=== PATIENT | female | born 1985 | race Two or more races ===

== ENCOUNTER 2016-07-23 16:33 | Emergency (ER) | payer OTHER ==
[~2016-07-23] VITALS: Ht 149.9 cm; Wt 65.8 kg
[~2016-07-23 16:33] MED LIST: ACETAMINOPHEN-1 EAC1 ORAL; AUGMENTIN 875-1 EAC1 ORAL; CHERATUSSIN AC118 ML PO; FLONASE1 SPRAYS NASAL; IBUPROFEN800 MG ORAL; NKM; NORCO 5-325 TA1 EACH ORAL; PROMETHAZINE HC25 M1 ORAL
[2016-07-23] MEDS ORDERED: FERROUS SULFAT325 MG ORAL (16:47)
--- NOTE | 2016-07-23 17:05 | Emergency Room Report ---
History of Present Illness General Chief Complaint: Upper Respiratory Illness Source: Patient Present Illness HPI 31-year-old female presents to emergency Department complaining of persistent dry cough times one week with one day of increased phlegm. Patient denies fevers or chills patient states she has a history of asthma and does not have an inhaler. Patient also states that she has tried taking her children's promethazine however It provided little relief. Patient denies recent travel or ill contacts other than her children. Patient denies neck pain or stiffness. Denies CP, Palpitations, LOC, AMS, dizziness, Changes in Vision, Sensation, paresthesias, or a sudden severe headache. Allergies: Coded Allergies: No Known Allergies (Unverified , 09/21/13) Patient History Past Medical History: see triage record Last Menstrual Period: 07/03/2016 Now: No : 4 Para: 3 Immunizations: UTD Reviewed Nursing Documentation: PMH: Agreed, PSxH: Agreed Nursing Documentation-PMH Hx Cardiac Problems: Yes Hx Asthma: Yes Review of Systems All Other Systems: negative except mentioned in HPI Physical Exam Vital Signs Date Time Temp Pulse Resp B/P Pulse Ox O2 Delivery O2 Flow Rate FiO2 07/23/16 16:42 98.6 76 16 105/62 99 Room Air Sp02 EP Interpretation: reviewed, normal General Appearance: no apparent distress, alert, GCS 15, non-toxic Head: normocephalic, atraumatic Eyes: bilateral eye PERRL, bilateral eye normal inspection ENT: hearing grossly normal, normal pharynx, no angioedema, normal voice Neck: full range of motion, no meningismus, no bony tend, supple/symm/no masses Respiratory: chest non-tender, lungs clear, normal breath sounds, no respiratory distress, speaking full sentences, wheezing - scant bilaterally wheezes noted Cardiovascular #1: regular rate, rhythm, no edema Gastrointestinal: normal bowel sounds, non tender, soft, no guarding, no rebound Rectal: deferred Genitourinary: normal inspection, no CVA tenderness Musculoskeletal: back normal, gait/station normal, normal range of motion, non- tender, no calf tenderness Neurologic: alert, oriented x3, responsive, motor strength/tone normal, sensory intact, speech normal Psychiatric: judgement/insight normal, memory normal, mood/affect normal, no suicidal/homicidal ideation Skin: normal color, no rash, warm/dry, well hydrated Lymphatic: no adenopathy Medical Decision Making PA Attestation Dr. Rice is my supervising Physician whom patient management has been discussed with. Diagnostic Impression: Primary Impression: Bronchitis with asthma, acute ER Course 31-year-old female presents to emergency Department complaining of persistent dry cough times one week with one day of increased phlegm. Patient denies fevers or chills patient states she has a history of asthma and does not have an inhaler. Patient also states that she has tried taking her children's promethazine however It provided little relief. Patient denies recent travel or ill contacts other than her children. Patient denies neck pain or stiffness. Ddx considered but are not limited to URI, pneumonia, PE, strep pharyngitis, meningitis. Vital signs: Pt.is afebrile VS are WNL H&PE are most consistent with bronchitis ORDERS: none required at this time, the diagnosis is clinical ED INTERVENTIONS: None required at this time. DISCHARGE: At this time pt. is stable for d/c to home. Will provide printed patient care instructions, and any necessary prescriptions. Care plan and follow up instructions have been discussed with the patient prior to discharge. Last Vital Signs Date Time Temp Pulse Resp B/P Pulse Ox O2 Delivery O2 Flow Rate FiO2 07/23/16 16:49 76 16 Room Air 07/23/16 16:42 98.6 105/62 99 Disposition: HOME, SELF-CARE Condition: Stable Scripts Guaifenesin (Guaifenesin) 1,200 Mg Tab.er.12h 1200 MG PO BID for 10 Days, #20 TAB Prov: Jacqui Herrera 07/23/16 Albuterol Sulfate* (ALBUTEROL SULFATE MDI*) 8.5 Gm Hfa.aer.ad 2 PUFF INH Q4H, #1 INH 0 Refills Prov: Jacqui Herrera.ARubina 07/23/16 Codeine/Promethazine Hcl* (PROMETHAZINE-CODEINE SYRUP*) 118 Ml Syrup 5 ML ORAL Q6H Y for For Cough, #118 ML 0 Refills Prov: Jacqui Herrera.ARubina 07/23/16 Patient Instructions: Acute Bronchitis, [id number] Additional Instructions: Take medications as directed. Follow up with PCP in 3-5 days Return sooner to ED if new symptoms occur, or current symptoms become worse. Do not drink alcohol, drive, or operate heavy machinery while taking Cough Syrup as this may cause drowsiness. - Please note that this Emergency Department Report was dictated using Product Worldb[employer] operator technology software, occasionally this can lead to erroneous entry secondary to interpretation by the dictation equipment. Jacqui Herrera Jul 23, 2016 17:05
[2016-07-23] MEDS ORDERED: PROMETHAZINE-C118 M1 ORAL (17:06)
[2016-07-23] MEDS ORDERED: ALBUTEROL SULF8.5 GM INH (17:06)
[2016-07-23] MEDS ORDERED: GUAIFENESIN1200 MG PO (17:06)
[2016-07-23 17:20] VITALS: BP 105/72
== END 2016-07-23 17:50 | disposition home or self-care (01) ==
LOC: EMR 17:35
DX: J20.9 Acute bronchitis, unspecified (principal); J45.909 Unspecified asthma, uncomplicated
CPT/HCPCS: 99284

== ENCOUNTER 2016-11-03 19:24 | Emergency (ER) | payer OTHER ==
[~2016-11-03] VITALS: Ht 149.9 cm; Wt 68.0 kg
[~2016-11-03 19:24] MED LIST changes: +ALBUTEROL SULF8.5 GM INH; +FERROUS SULFAT325 MG ORAL; +GUAIFENESIN1200 MG PO; +PROMETHAZINE-C118 M1 ORAL
[2016-11-03] MEDS ORDERED: IBUPROFEN200 MG ORAL (19:30)
[2016-11-03 19:33] VITALS: BP 106/66
[2016-11-03] MEDS ORDERED: IBUPROFEN600 MG ORAL (20:36)
[2016-11-03] MEDS ORDERED: PROMETHAZINE-C118 M1 ORAL (20:36)
[2016-11-03] MEDS ORDERED: PROAIR HFA8.5 GM INH (20:36)
[2016-11-03] MEDS ORDERED: ZITHROMAX250 MG ORAL (20:36)
[2016-11-03 20:41] VITALS: BP 106/66
--- NOTE | 2016-11-03 21:08 | Emergency Room Report ---
History of Present Illness General Chief Complaint: Flu Like Symptoms Present Illness HPI The patient is a 31-year-old female presenting for fever, cough, and myalgias for the past 5 days. She denies any sick contacts or recent travel. She has tried Motrin which does help for the pain and fever. Patient describes an 8/10 dull ache to her chest with coughing and does not radiate. She describes a yellow sputum. She denies any other symptoms including N, V, neck pain/stiffness, SOB, rash Allergies: Coded Allergies: No Known Allergies (Unverified , 11/03/16) Patient History Past Medical History: see triage record Pertinent Family History: none Last Menstrual Period: now Now: No Reviewed Nursing Documentation: PMH: Agreed, PSxH: Agreed Nursing Documentation-PMH Hx Cardiac Problems: Yes Hx Asthma: Yes Review of Systems All Other Systems: negative except mentioned in HPI Physical Exam Vital Signs Date Time Temp Pulse Resp B/P Pulse Ox O2 Delivery O2 Flow Rate FiO2 11/03/16 19:25 100.8 109 16 106/66 100 Room Air Sp02 EP Interpretation: reviewed, normal General Appearance: no apparent distress, alert, GCS 15, non-toxic Head: normocephalic, atraumatic Eyes: bilateral eye PERRL, bilateral eye normal inspection ENT: hearing grossly normal, normal pharynx, no angioedema, normal voice, TMs + canals normal, uvula midline Neck: full range of motion, supple/symm/no masses Respiratory: normal inspection, chest non-tender, no accessory muscle use, wheezing - bilat diffuse Gastrointestinal: normal bowel sounds, non tender, soft, non-distended, no guarding, no rebound Musculoskeletal: back normal, gait/station normal, normal range of motion, non- tender Neurologic: alert, oriented x3, responsive, motor strength/tone normal, sensory intact, speech normal Psychiatric: judgement/insight normal, memory normal, mood/affect normal, no suicidal/homicidal ideation Skin: normal color, no rash, warm/dry, well hydrated Lymphatic: no adenopathy Medical Decision Making PA Attestation Dr. Garcia is my supervising physician. Patient management was discussed with my supervising physician Diagnostic Impression: Primary Impression: Bronchitis ER Course The patient is a 31-year-old female presenting for fever, cough, and myalgias for the past 5 days Differential diagnosis include but not limited to pharyngitis, sinusitis, AOM, bronchitis, PNA PE: febrile. NAD HEENT unremarkable Lungs: diffuse wheezing CXR unremarkable The patient is discharged home with a prescription for cough medication, albuterol, and Motrin. ER precautions given Chest X-Ray Diagnostic Results Chest X-Ray Ordered: Yes # of Views/Limited/Complete: 1 View Interpretation: no consolidation, no effusion, no pneumothorax, no acute cardiopulmonary disease Indication: Other - cough Impression: No acute disease Date Electronically Signed: Nov 03, 2016 Time Electronically Signed: 21:07 PA Scribe Text I am acting as scribe for my supervising physician. My supervising physician's interpretation of the chest xrays are there is no consolidation, no effusion, no acute cardiopulmonary disease, no pneumothorax Last Vital Signs Date Time Temp Pulse Resp B/P Pulse Ox O2 Delivery O2 Flow Rate FiO2 11/03/16 20:41 100.8 16 106/66 100 Room Air 11/03/16 19:33 109 Status: improved Disposition: HOME, SELF-CARE Condition: Improved Scripts Codeine/Promethazine Hcl* (PROMETHAZINE-CODEINE SYRUP*) 118 Ml Syrup 5 ML ORAL Q6H Y for For Cough, #118 ML 0 Refills Prov: CARRIEZIANMILANA P.A. 11/03/16 Albuterol Sulfate* (PROAIR HFA*) 8.5 Gm Hfa.aer.ad 2 PUFFS INH Q6H, #8.5 GM 0 Refills Prov: TERZIAN,MILANA P.A. 11/03/16 Ibuprofen* (MOTRIN*) 600 Mg Tablet 600 MG ORAL Q8H Y for For Pain, #30 TAB 0 Refills Prov: TERZIAN,MILANA P.A. 11/03/16 Patient Instructions: Acute Bronchitis Additional Instructions: I discussed my findings with the patient. All questions and concerns have been answered. Treatment and medication compliance have been addressed. I advised the patient that they need to follow up with PMD in 3-5 days. Return to ED if pain remains or worsens, cough worsens or remains, you notice blood in your sputum, you notice wheezing, you experience a fever, or if needed for any reason. Patient verbalized understanding of discharge instructions. MILANA FERMIN Nov 03, 2016 21:08
--- NOTE | 2016-11-04 12:04 | Diagnostic Imaging Report ---
Indication: COUGH Technique: Single portable AP view of the chest. Findings: Comparison: None. The bones and extra pulmonary soft tissues, cardiomediastinal silhouette, pulmonary vasculature and parenchyma, and pleural surfaces are unremarkable. IMPRESSION: Negative portable AP chest.
== END 2016-11-03 20:41 | disposition home or self-care (01) ==
LOC: EMR 19:59
DX: J45.909 Unspecified asthma, uncomplicated (principal)
CPT/HCPCS: 71010; 99284

== ENCOUNTER 2017-03-19 13:29 | Emergency (ER) | payer OTHER ==
[~2017-03-19] VITALS: Ht 149.9 cm; Wt 51.7 kg
[~2017-03-19 13:29] MED LIST changes: +IBUPROFEN200 MG ORAL; +IBUPROFEN600 MG ORAL; +PROAIR HFA8.5 GM INH; +ZITHROMAX250 MG ORAL
--- NOTE | 2017-03-19 14:00 | Emergency Room Report ---
History of Present Illness General Chief Complaint: Earache Source: Patient Present Illness HPI 31-year-old female presents to the emergency department complaining of 8/10 in severity right ear ache with muffled hearing in the right ear in addition to a sore throat with nasal congestion. Denies fevers or chills. Denies neck pain or stiffness. Reports pain is exacerbated upon swallowing. She denies headache , loss of hearing, tinnitus or q-tip use. Denies CP, Palpitations, LOC, AMS, dizziness, Changes in Vision, Sensation, paresthesias, or a sudden severe headache. pt. has hx of cerumen impactions in the right ear. Allergies: Coded Allergies: No Known Allergies (Unverified , 11/03/16) Patient History Past Medical History: see triage record Past Surgical History: none Pertinent Family History: none Last Menstrual Period: 03/13/17 Now: No Immunizations: UTD Reviewed Nursing Documentation: PMH: Agreed, PSxH: Agreed Nursing Documentation-PMH Past Medical History: No History, Except For Hx Cardiac Problems: Yes Hx Asthma: Yes Review of Systems All Other Systems: negative except mentioned in HPI Physical Exam Vital Signs Date Time Temp Pulse Resp B/P (MAP) Pulse Ox O2 Delivery O2 Flow Rate FiO2 03/19/17 13:31 98.1 87 18 101/67 97 Room Air Sp02 EP Interpretation: reviewed, normal General Appearance: no apparent distress, alert, GCS 15, non-toxic Head: normocephalic, atraumatic Eyes: bilateral eye normal inspection, bilateral eye PERRL ENT: hearing grossly normal, normal pharynx, normal voice, uvula midline, moist mucus membranes, nasal congestion, pharyngeal erythema, other - excessive cerumen in the right ear canal. There is no evidence of TM infection or rupture , canal is WNL. Neck: full range of motion, no meningismus, supple/symm/no masses Respiratory: chest non-tender, lungs clear, normal breath sounds, speaking full sentences Cardiovascular #1: regular rate, rhythm Musculoskeletal: back normal, gait/station normal, normal range of motion Neurologic: alert, oriented x3, responsive, motor strength/tone normal, sensory intact, speech normal Skin: normal color, no rash, warm/dry, well hydrated Lymphatic: no adenopathy Medical Decision Making PA Attestation Dr. Hyde is my supervising Physician whom patient management has been discussed with. Diagnostic Impression: Primary Impression: Excessive cerumen in right ear canal Additional Impressions: Post-nasal drainage Pharyngitis Qualified Codes: J02.9 - Acute pharyngitis, unspecified ER Course 31-year-old female presents to the emergency department complaining of 8/10 in severity right ear ache with muffled hearing in the right ear in addition to a sore throat with nasal congestion. Denies fevers or chills. Denies neck pain or stiffness. Reports pain is exacerbated upon swallowing. She denies headache , loss of hearing, tinnitus or q-tip use. Denies CP, Palpitations, LOC, AMS, dizziness, Changes in Vision, Sensation, paresthesias, or a sudden severe headache. pt. has hx of cerumen impactions in the right ear. Ddx considered but are not limited to OM, OE, mastoiditis, TM perforation, FB, PND, pharyngitis jsut to name a few Vital signs: are WNL, pt. is afebrile H&PE are most consistent with excessive cerumen of the right ear canal, pharyngeal erythema with evidence of PND, no exudates or tonsillar swelling , bacterial infection is not suspected at this time. ORDERS: none required at this time, the diagnosis is clinical -OTOSCOPY: excessive cerumen in the right ear canal. There is no evidence of TM infection or rupture, canal is WNL. ED INTERVENTIONS: None required at this time. DISCHARGE: At this time pt. is stable for d/c to home. With rx for Debrox. Will provide printed patient care instructions, and any necessary prescriptions. Care plan and follow up instructions have been discussed with the patient prior to discharge. Last Vital Signs Date Time Temp Pulse Resp B/P (MAP) Pulse Ox O2 Delivery O2 Flow Rate FiO2 03/19/17 13:31 98.1 87 18 101/67 97 Room Air Disposition: HOME, SELF-CARE Condition: Stable Scripts Acetaminophen* (TYLENOL EXTRA STRENGTH*) 500 Mg Tablet 500 MG ORAL Q6H, #20 TAB 0 Refills Prov: Jacqui Herrera P.A. 03/19/17 Cetirizine Hcl* (ZYRTEC*) 10 Mg Tablet 10 MG ORAL DAILY, #15 TAB 0 Refills Prov: Jacqui Herrera P.A. 03/19/17 Lidocaine HCl 2% Viscous (Lidocaine HCl 2% Viscous) 100 Ml Solution 10 ML ORAL QID for 3 Days, #100 ML Prov: Jacqui Herrera 03/19/17 Carbamide Peroxide (DEBROX) 15 Ml Drops 10 DROP RIGHT EAR TWICE A DAY for 4 Days, #15 ML 0 Refills Prov: Jacqui Herrera 03/19/17 Patient Instructions: Cerumen Impaction, Earache Additional Instructions: Take medications as directed. Follow up with a Primary Care Provider in 3-5 days, even if your symptoms have resolved. --Please review list of primary care clinics, if you do not already have a primary care provider Return sooner to ED if new symptoms occur, or current symptoms become worse. - Please note that this Emergency Department Report was dictated using [employer] kura kaupapa maori technology software, occasionally this can lead to erroneous entry secondary to interpretation by the dictation equipment. Jacqui Herrera Mar 19, 2017 14:00
[2017-03-19] MEDS ORDERED: ZYRTEC10 MG ORAL (14:01)
[2017-03-19] MEDS ORDERED: DEBROX15 M1 RIGHT EAR (14:01)
[2017-03-19] MEDS ORDERED: LIDOCAINE VISC100 ML ORAL (14:01)
[2017-03-19] MEDS ORDERED: TYLENOL EXTRA500 MG ORAL (14:05)
[2017-03-19 14:11] VITALS: BP 101/67
[2017-03-19 14:15] VITALS: BP 101/67
== END 2017-03-19 14:20 | disposition home or self-care (01) ==
LOC: EMR 13:59
DX: H61.21 Impacted cerumen, right ear (principal); R09.82 Postnasal drip; J02.9 Acute pharyngitis, unspecified; J45.909 Unspecified asthma, uncomplicated
CPT/HCPCS: 99284

== ENCOUNTER 2017-09-29 19:32 | Emergency (ER) | payer OTHER ==
[~2017-09-29] VITALS: Ht 149.9 cm; Wt 65.8 kg
[~2017-09-29 19:32] MED LIST changes: +DEBROX15 M1 RIGHT EAR; +LIDOCAINE VISC100 ML ORAL; +TYLENOL EXTRA500 MG ORAL; +ZYRTEC10 MG ORAL
[2017-09-29 20:26] LABS: APPEARANCE,URINE CLEAR; BILIRUBIN, URINE NEGATIVE (NEGATIVE); GLUCOSE, URINE (UA) NEGATIVE (NEGATIVE); KETONES,URINE NEGATIVE (NEGATIVE); LEUKOCYTE ESTERASE ,URINE NEGATIVE (NEGATIVE); NITRITE,URINE NEGATIVE (NEGATIVE); PH,URINE 7 (4.5-8.0); PROTEIN,URINE NEGATIVE (NEGATIVE); UROBILINOGEN,URINE 1 MG/DL (0.0-1.0)
[2017-09-29 20:26] LABS: BASOPHILS % (AUTO) 0.6 % (0.0-2.0); EOSINOPHILS % (AUTO) 0.7 % (0.0-3.0); HEMOGLOBIN 11.3 G/DL (12.0-16.0); LYMPHOCYTES % (AUTO) 13.1 % (20.0-45.0); MEAN CORPUSCULAR VOLUME 75 FL (80-99); MONOCYTES % (AUTO) 4.8 % (1.0-10.0); NEUTROPHILS % (AUTO) 80.8 % (45.0-75.0); PLATELET COUNT 219 K/UL (150-450); RED CELL DISTRIBUTION WIDTH 15.6 % (11.6-14.8); WHITE BLOOD COUNT 8.3 K/UL (4.8-10.8)
[2017-09-29 20:32] LABS: COLOR,URINE YELLOW
[2017-09-29 20:34] LABS: ANION GAP 10 mmol/L (5-15); BLOOD UREA NITROGEN 12 mg/dL (7-18); CALCIUM 8.5 MG/DL (8.5-10.1); CARBON DIOXIDE 22 MMOL/L (21-32); CHLORIDE 104 MMOL/L (98-107); CREATININE 0.8 MG/DL (0.55-1.30); POTASSIUM 3.9 MMOL/L (3.5-5.1); SODIUM 136 MMOL/L (136-145)
[2017-09-29 20:39] LABS: ALANINE AMINOTRANSFERASE 21 U/L (12-78); ALBUMIN 3.7 G/DL (3.4-5.0); ALBUMIN/GLOBULIN RATIO 0.9 (1.0-2.7); ALKALINE PHOSPHATASE 67 U/L (46-116); ASPARTATE AMINO TRANSFERASE 17 U/L (15-37); BILIRUBIN,TOTAL 0.8 MG/DL (0.2-1.0)
[2017-09-29] MEDS ORDERED: PEPCID AC20 M2 PO (21:03)
--- NOTE | 2017-09-29 21:09 | Emergency Room Report ---
History of Present Illness General Chief Complaint: Abdominal Pain Source: Patient Present Illness HPI 32-year-old female with no sig pmhx p/w epigastric abd pain nausea vomiting diarrhea for 1 day. Patient states pain started gradually , localized to epigastric area, non radiating, burning in nature, intermittent. No relieving or exacerbating factors. States that she traveled to [place] recently, and they have had bad [place] food Pt reports n/v, more than 5 episodes of nbnb vomiting, more than 5 episodes of watery non bloody diarrhea. Denies black or bloody stools. No recent antibiotic use Denies fever, chills. No hx of abdominal surgeries. No hx of endoscopies/colonoscopies. Allergies: Coded Allergies: No Known Allergies (Unverified , 11/03/16) Patient History Past Medical History: see triage record Past Surgical History: none Pertinent Family History: none Last Menstrual Period: a month ago Reviewed Nursing Documentation: PMH: Agreed; PSxH: Agreed Nursing Documentation-PMH Hx Cardiac Problems: Yes Hx Asthma: Yes Review of Systems All Other Systems: negative except mentioned in HPI Physical Exam Vital Signs Date Time Temp Pulse Resp B/P (MAP) Pulse Ox O2 Delivery O2 Flow Rate FiO2 09/29/17 19:36 98.3 97 16 102/67 97 Room Air 98.2 Sp02 EP Interpretation: reviewed, normal General Appearance: mild distress Head: normocephalic, atraumatic Eyes: bilateral eye normal inspection, bilateral eye PERRL, bilateral eye EOMI ENT: normal ENT inspection, normal pharynx, normal voice, moist mucus membranes Neck: normal inspection, full range of motion, supple Respiratory: normal inspection, lungs clear, normal breath sounds, no respiratory distress, no retraction, no wheezing, speaking full sentences, chest symmetrical Cardiovascular #1: normal inspection, regular rate, rhythm, no edema, normal capillary refill Cardiovascular #2: 2+ radial (R), 2+ radial (L) Gastrointestinal: other - Mild epigastric tenderness, no guarding no rigidity, nontender elsewhere in her abdomen Musculoskeletal: normal inspection, back normal, normal range of motion, non- tender Neurologic: normal inspection, alert, oriented x3, responsive, motor strength/ tone normal, sensory intact, normal gait, speech normal Psychiatric: normal inspection, judgement/insight normal, memory normal Skin: normal inspection, normal color, no rash, warm/dry, well hydrated, normal turgor Medical Decision Making Diagnostic Impression: Primary Impression: Epigastric pain Additional Impression: Nausea, vomiting, and diarrhea ER Course 32-year-old female with nausea vomiting diarrhea and epigastric abdominal pain Differential Diagnosis: Gastritis, gastroenteritis, cholecystitis, cardiac, UTI/pyelo At this time abdomen is soft nontender, not likely to have acute intra- abdominal surgical pathology, will hold CT for now. Plan: Basic labs, ua, fluid Zofran ER course: Patient has remained stable during ED stay. Pain improved. Repeat abdominal exam is nontender. Tolerating PO Labs are unremarkable Disposition: Patient is to be discharged to home. Prescriptions given are pepcid Patient is instructed to follow up with their primary care doctor within 5 days. Strict return precautions discussed with patient such as fever, chills, worsening/severe abdominal pain, nausea, vomiting, black or bloody stools, which may indicate severe illness. Patient verbalizes understanding and agrees with plan. Please note that this Emergency Department Report was dictated using [employer]IFOT[employer]animal husbandry worker technology software, occasionally this can lead to erroneous entry secondary to interpretation by the dictation equipment Last Vital Signs Date Time Temp Pulse Resp B/P (MAP) Pulse Ox O2 Delivery O2 Flow Rate FiO2 09/29/17 19:36 98.3 97 16 102/67 97 Room Air 98.2 Disposition: HOME, SELF-CARE Condition: Improved Scripts Famotidine (PEPCID AC) 20 Mg Tablet 20 MG PO QHS, #14 TAB Prov: Shari Khoury M.D. 09/29/17 Patient Instructions: Abdominal Pain, Adult Shari Khoury M.D. September 29, 2017 21:09
[2017-09-29 21:21] VITALS: BP 110/69
== END 2017-09-29 21:30 | disposition home or self-care (01) ==
LOC: EMR 19:50
DX: R10.13 Epigastric pain (principal); R11.2 Nausea with vomiting, unspecified; R19.7 Diarrhea, unspecified; J45.909 Unspecified asthma, uncomplicated
CPT/HCPCS: 36415; 80053; 81003; 81025; 83690; 85025; 96361; 96374; 96375; 99284; J2405; S0028

== ENCOUNTER 2018-03-15 22:26 | Emergency (ER) | payer OTHER ==
[~2018-03-15] VITALS: Ht 149.9 cm; Wt 65.8 kg
[~2018-03-15 22:26] MED LIST changes: +PEPCID AC20 M2 PO
[2018-03-15] MEDS ORDERED: CLARITIN-D 121 EAC1 ORAL (22:55)
[2018-03-15] MEDS ORDERED: CIPRODEX OTIC7.5 M1 RIGHT EAR (22:55)
[2018-03-15 23:35] VITALS: BP 111/77
[2018-03-15 23:37] VITALS: BP 111/77
--- NOTE | 2018-03-16 00:25 | Emergency Room Report ---
History of Present Illness General Chief Complaint: Earache Source: Patient, Medical Record Present Illness HPI Patient is a 32-year-old female presented after increased right-sided earache. Patient reports having the symptoms for the approximately one week. She reports having increased sharp pain. The patient reports having similar symptoms in the past. She denies any fever. She reports having some diminished hearing on that side. She denies recent trauma. She denies recent swimming. Allergies: Coded Allergies: No Known Allergies (Unverified , 03/15/18) Patient History Past Medical History: see triage record Last Menstrual Period: Feb 2018 Reviewed Nursing Documentation: PMH: Agreed; PSxH: Agreed Nursing Documentation-PMH Past Medical History: No History, Except For Hx Cardiac Problems: Yes Hx Asthma: Yes Review of Systems All Other Systems: negative except mentioned in HPI Physical Exam Vital Signs Date Time Temp Pulse Resp B/P (MAP) Pulse Ox O2 Delivery O2 Flow Rate FiO2 03/15/18 22:30 98.4 91 15 111/77 96 Room Air 98.4 General Appearance: well appearing, no apparent distress, alert, GCS 15 Head: normocephalic, atraumatic ENT: hearing grossly normal, normal voice, other - tragus tenderness, minimal canal swelling, no tm erythema or exudate Neck: full range of motion, supple Respiratory: no respiratory distress, speaking full sentences Gastrointestinal: normal inspection Musculoskeletal: no calf tenderness Neurologic: normal inspection, alert, oriented x3, normal gait Psychiatric: mood/affect normal Skin: no rash Medical Decision Making Diagnostic Impression: Primary Impression: Otitis externa of right ear ER Course Patient presented for ear pain. Differential diagnosis included was not limited to otitis media, malignant otitis externa, foreign body, cellulitis, mastoiditis, carotid dissection, myocardial infarction among others. Patient has a benign exam and does not appear to require any further imaging or laboratory testing at this time. The patient is given prescription for Ciprodex as well as Claritin. The patient is advised follow-up with primary care physician for ENT referral. Last Vital Signs Date Time Temp Pulse Resp B/P (MAP) Pulse Ox O2 Delivery O2 Flow Rate FiO2 03/15/18 23:37 98.4 15 111/77 96 Room Air 98.4 03/15/18 22:30 91 Status: improved Disposition: HOME, SELF-CARE Condition: Stable Scripts Ciprofloxacin Hcl/Dexameth (CIPRODEX OTIC SUSPENSION) 7.5 Ml Drops.susp 4 DROP RIGHT EAR TWICE A DAY, #7.5 ML Prov: Davis Palmer MD 03/15/18 Loratadine/Pseudoephedrine (CLARITIN-D 12 HOUR TABLET) 1 Each Tab.er.12h 1 TAB ORAL EVERY 12 HOURS, #30 TAB Prov: Davis Palmer MD 03/15/18 Referrals: [facility],REFERRING (PCP) Patient Instructions: Otitis Externa Davis Palmer MD Mar 16, 2018 00:25
== END 2018-03-15 23:25 | disposition home or self-care (01) ==
LOC: EMR 22:48
DX: H60.91 Unspecified otitis externa, right ear (principal); J45.909 Unspecified asthma, uncomplicated
CPT/HCPCS: 99283

== ENCOUNTER 2018-05-08 22:58 | Emergency (ER) | payer OTHER ==
[~2018-05-08] VITALS: Ht 149.9 cm; Wt 68.0 kg
[~2018-05-08 22:58] MED LIST changes: +CIPRODEX OTIC7.5 M1 RIGHT EAR; +CLARITIN-D 121 EAC1 ORAL
[2018-05-08] MEDS ORDERED: PROMETHAZINE-C118 M1 ORAL (23:40)
[2018-05-08] MEDS ORDERED: ALBUTEROL SULF8.5 GM INH (23:40)
[2018-05-08] MEDS ORDERED: PREDNISONE20 MG ORAL (23:40)
[2018-05-08] MEDS ORDERED: Promethazine/Codeine 5ml UD ORAL ONE (23:45)
[2018-05-09 00:53] VITALS: BP 141/80
--- NOTE | 2018-05-09 05:03 | Emergency Room Report ---
History of Present Illness General Chief Complaint: Upper Respiratory Illness Source: Patient Present Illness HPI 33-year-old female presents ED for evaluation. Complaining of cough 3 days. Cough is dry. Denies fevers or chills. Notes history of asthma and states she does not have an inhaler at this time. Patient notes soreness in her chest from coughing. Dull, 5 out of 10, nonradiating. Denies sick contacts or recent travel. No other aggravating relieving factors. Denies any other associated symptoms Allergies: Coded Allergies: No Known Allergies (Unverified , 03/15/18) Patient History Past Medical History: asthma Past Surgical History: none Pertinent Family History: none Social History: Denies: smoking, alcohol use, drug use Last Menstrual Period: APR 26 Now: No Immunizations: UTD Reviewed Nursing Documentation: PMH: Agreed; PSxH: Agreed Nursing Documentation-PMH Hx Cardiac Problems: Yes Hx Asthma: Yes Review of Systems All Other Systems: negative except mentioned in HPI Physical Exam Vital Signs Date Time Temp Pulse Resp B/P (MAP) Pulse Ox O2 Delivery O2 Flow Rate FiO2 05/08/18 23:04 98.1 92 19 141/80 99 Room Air Sp02 EP Interpretation: reviewed, normal General Appearance: no apparent distress, alert, GCS 15, non-toxic Head: normocephalic, atraumatic Eyes: bilateral eye normal inspection, bilateral eye PERRL ENT: hearing grossly normal, normal pharynx, no angioedema, normal voice Neck: full range of motion, supple/symm/no masses Respiratory: chest non-tender, lungs clear, normal breath sounds, speaking full sentences Cardiovascular #1: regular rate, rhythm, no edema Cardiovascular #2: 2+ carotid (R), 2+ carotid (L), 2+ radial (R), 2+ radial (L) , 2+ dorsalis pedis (R), 2+ dorsalis pedis (L) Gastrointestinal: normal bowel sounds, non tender, soft, non-distended, no guarding, no rebound Rectal: deferred Genitourinary: normal inspection, no CVA tenderness Musculoskeletal: back normal, gait/station normal, normal range of motion, non- tender Neurologic: alert, oriented x3, responsive, motor strength/tone normal, sensory intact, speech normal Psychiatric: judgement/insight normal, memory normal, mood/affect normal, no suicidal/homicidal ideation Reflexes: 3+ bicep (R), 3+ bicep (L), 3+ tricep (R), 3+ tricep (L), 3+ knee (R) , 3+ knee (L) Skin: normal color, no rash, warm/dry, well hydrated Lymphatic: no adenopathy Medical Decision Making Diagnostic Impression: Primary Impression: Bronchitis ER Course Hospital Course 33 yo F presents to ED c/o cough Differential diagnoses include: URI, pharyngitis, otitis media, asthma Clinical course Patient placed on stretcher. After initial history, physical exam reveals a young female in no acute distress. Bilateral TM unremarkable. No pharyngeal erythema. No tonsillar exudates. No lymphadenopathy. lungs clear. abdomen soft. Clinical findings consistent with bronchitis. Declined breathing treatment here. Given promethazine/codeine. We will discharge with inhaler, steroids, cough medication. Safe for discharge or close outpatient follow-up Diagnosis - bronchitis Stable and discharged home with Rx albuterol, prednisone, promethazine/codeine. Instructed to followup with PMD. Return to ED if symptoms recur or worsen Last Vital Signs Date Time Temp Pulse Resp B/P (MAP) Pulse Ox O2 Delivery O2 Flow Rate FiO2 05/09/18 00:53 98.1 76 19 141/80 99 Room Air Status: improved Disposition: HOME, SELF-CARE Condition: Stable Scripts Codeine/Promethazine Hcl* (PROMETHAZINE-CODEINE SYRUP*) 118 Ml Syrup 5 ML ORAL Q6H PRN for For Cough, #118 ML 0 Refills Prov: Navarro Baker MD 05/08/18 Prednisone* (PREDNISONE*) 20 Mg Tablet 40 MG ORAL DAILY, #10 TAB Prov: Navarro Baker MD 05/08/18 Albuterol Sulfate* (ALBUTEROL SULFATE MDI*) 8.5 Gm Hfa.aer.ad 2 PUFF INH Q6H, #1 EA 0 Refills Prov: Navarro Baker MD 05/08/18 Referrals: [facility]ERR[facility] (PCP) Patient Instructions: Acute Bronchitis, [id number] Navarro Baker MD May 09, 2018 05:03
== END 2018-05-08 23:45 | disposition home or self-care (01) ==
LOC: EMR 23:32
DX: J45.909 Unspecified asthma, uncomplicated (principal)
CPT/HCPCS: 99283

== ENCOUNTER 2018-05-28 22:15 | Emergency (ER) | payer OTHER ==
[~2018-05-28] VITALS: Ht 149.9 cm; Wt 65.8 kg
[~2018-05-28 22:15] MED LIST changes: +PREDNISONE20 MG ORAL
--- NOTE | 2018-05-28 22:23 | NUR ---
ED Nurse Note: Patient presents with cough x 1 week, has h/o cough over a month ago, Cough now recurrent.
[2018-05-28 22:26] VITALS: BP 101/62
[2018-05-28] MEDS ORDERED: Albuterol/Ipratropium 3ml neb HHN ONE (22:45)
[2018-05-28] MEDS ORDERED: PREDNISONE20 MG ORAL (23:38)
[2018-05-28] MEDS ORDERED: PROMETH-CODEIN 65 ML PO (23:38)
--- NOTE | 2018-05-28 23:38 | Emergency Room Report ---
History of Present Illness General Chief Complaint: Upper Respiratory Illness Source: Patient Present Illness HPI Is a 33-year-old female with his asthma. She presents with chief complaint of a cough for a week. Nonproductive in nature. Worse with inspiration. No fever chills but no nausea or vomiting. No relief with her inhaler. Similar symptom last month. No other complaint. Allergies: Coded Allergies: No Known Allergies (Unverified , 03/15/18) Patient History Past Medical History: see triage record, old chart reviewed, asthma Past Surgical History: other Pertinent Family History: none Social History: Denies: smoking Last Menstrual Period: 05/18/2018 Now: No : 4 Para: 3 Immunizations: other Reviewed Nursing Documentation: PMH: Agreed; PSxH: Agreed Nursing Documentation-PMH Past Medical History: No History, Except For Hx Cardiac Problems: Yes Hx Asthma: Yes Review of Systems Eye: Denies: eye pain, blurred vision ENT: Denies: ear pain, nose congestion, throat swelling Respiratory: Reports: cough; Denies: shortness of breath Cardiovascular: Denies: chest pain, palpitations Gastrointestinal: Denies: abdominal pain, diarrhea, nausea, vomiting Musculoskeletal: Denies: back pain, joint pain Skin: Denies: rash Neurological: Denies: headache, numbness Endocrine: Denies: increased thirst, increased urine Hematologic/Lymphatic: Denies: easy bruising All Other Systems: negative except mentioned in HPI Physical Exam Vital Signs Date Time Temp Pulse Resp B/P (MAP) Pulse Ox O2 Delivery O2 Flow Rate FiO2 05/28/18 22:18 98.2 94 16 101/62 98 Room Air 05/28/18 22:47 21 vitals normal Sp02 EP Interpretation: reviewed, normal General Appearance: well appearing, no apparent distress, alert Head: normocephalic, atraumatic Eyes: bilateral eye PERRL, bilateral eye EOMI ENT: hearing grossly normal, normal pharynx Neck: full range of motion, supple, no meningismus Respiratory: chest non-tender, other - Coughing with inspiration, slight wheezing Cardiovascular #1: regular rate, rhythm, no murmur Gastrointestinal: normal bowel sounds, non tender, no mass, no organomegaly, no bruit, non-distended Musculoskeletal: back normal, gait/station normal, normal range of motion Psychiatric: mood/affect normal Skin: warm/dry Medical Decision Making Diagnostic Impression: Primary Impression: Asthma exacerbation Qualified Codes: J45.21 - Mild intermittent asthma with (acute) exacerbation ER Course Patient with cough and wheezing. No evidence of pneumonia, ACS, PE or dissection to name a few. May be allergic in nature. We'll discharge home with symptomatically treatment. No evidence of any infection. Last Vital Signs Date Time Temp Pulse Resp B/P (MAP) Pulse Ox O2 Delivery O2 Flow Rate FiO2 05/28/18 22:58 96 18 99 Room Air 21 05/28/18 22:26 98.2 101/62 Status: improved Disposition: HOME, SELF-CARE Condition: Stable Scripts Promethazine HCl/Codeine (Prometh-Codein 6.25-10 mg/5 ml) 5 Ml Syrup 5 ML PO Q6HR, #120 ML Prov: Bob Marquez MD 05/28/18 Prednisone* (PREDNISONE*) 20 Mg Tablet 40 MG ORAL DAILY, #8 TAB Prov: Bob Marquez MD 05/28/18 Additional Instructions: Follow-up with your DrRubina in 2-3 days. Return if symptom worsen. Bob Marquez MD May 28, 2018 23:38
--- NOTE | 2018-05-28 23:55 | NUR ---
ED Nurse Note: Patient cleared for discharge by Dr. Marquez. Patient verbalized understanding of discharge instructions. PAtient ambulatory with steady gait, has no complaints of pain at this time and has no s/s of acute distress.
[2018-05-28 23:56] VITALS: BP 101/62
--- NOTE | 2018-05-29 15:52 | Diagnostic Imaging Report ---
EXAM: XR Chest, 1 View CLINICAL HISTORY: SOB TECHNIQUE: Frontal view of the chest. COMPARISON: 11/03/16 FINDINGS: Lungs: Mildly low lung volumes without focal consolidation. Pleural space: No pleural effusion or pneumothorax. Heart: Unremarkable. No cardiomegaly. Mediastinum: Unremarkable. Bones/joints: Unremarkable. IMPRESSION: Mildly low lung volumes without acute cardiopulmonary process radiographically evident.
== END 2018-05-28 23:56 | disposition home or self-care (01) ==
LOC: EMR 23:30
DX: J45.21 Mild intermittent asthma with (acute) exacerbation (principal)
CPT/HCPCS: 71045; 94640; 94664; 99284; J7512; J7620

== ENCOUNTER 2018-11-14 22:02 | Emergency (ER) | payer OTHER ==
[~2018-11-14] VITALS: Ht 152.4 cm; Wt 68.0 kg
[~2018-11-14 22:02] MED LIST changes: +PROMETH-CODEIN 65 ML PO
--- NOTE | 2018-11-14 22:10 | NUR ---
ED Nurse Note: Paula walked into ED cough for 1 week, at time of arrival patient is slightly wheezing expiratory. patient rates her pain a 8/10 pain and is primarily located in her head which is aggravated by coughing. patient is alert and oriented x4, ambulatory with a steady gait, VSS
[2018-11-14 22:30] VITALS: BP 110/79
[2018-11-14] MEDS ORDERED: Albuterol ud Inhalation HHN ONE (22:30)
[2018-11-14] MEDS ORDERED: Ipratropium 0.02% Inh Soln 2.5ml UD HHN ONE (22:30)
[2018-11-14] MEDS ORDERED: PREDNISONE20 MG ORAL (22:34)
[2018-11-14] MEDS ORDERED: ALBUTEROL SULF8.5 GM INH (22:34)
[2018-11-14] MEDS ORDERED: ZITHROMAX250 MG ORAL (22:35)
--- NOTE | 2018-11-14 22:35 | Emergency Room Report ---
History of Present Illness General Chief Complaint: Upper Respiratory Illness Source: Patient Present Illness HPI This is a 33-year-old female with history of asthma with infrequent attack. She presents with chief complaint of shortness of breath and coughing for about a week. No relief with cough medicine. Her inhaler has been so she did not use it. Denies any fever chills but cough is nonproductive nature. Worse with inspiration. Worse with exertion. Did have congestion and runny nose. Allergies: Coded Allergies: No Known Allergies (Unverified , 03/15/18) Patient History Past Medical History: see triage record, old chart reviewed, asthma Past Surgical History: none Pertinent Family History: none Social History: Denies: smoking Last Menstrual Period: 11/01/18 Now: No Immunizations: other Reviewed Nursing Documentation: PMH: Agreed; PSxH: Agreed Nursing Documentation-PMH Past Medical History: No History, Except For Hx Cardiac Problems: Yes Hx Asthma: Yes Review of Systems Eye: Denies: eye pain, blurred vision ENT: Denies: ear pain, nose congestion, throat swelling Respiratory: Reports: cough, shortness of breath, wheezing Cardiovascular: Denies: chest pain, palpitations Gastrointestinal: Denies: abdominal pain, diarrhea, nausea, vomiting Musculoskeletal: Denies: back pain, joint pain Skin: Denies: rash Neurological: Denies: headache, numbness Endocrine: Denies: increased thirst, increased urine Hematologic/Lymphatic: Denies: easy bruising All Other Systems: negative except mentioned in HPI Physical Exam Vital Signs Date Time Temp Pulse Resp B/P (MAP) Pulse Ox O2 Delivery O2 Flow Rate FiO2 11/14/18 22:04 98.2 103 18 110/79 (89) 97 Room Air Vitals normal Sp02 EP Interpretation: reviewed, normal General Appearance: well appearing, no apparent distress, alert Head: normocephalic, atraumatic Eyes: bilateral eye PERRL, bilateral eye EOMI ENT: hearing grossly normal, normal pharynx Neck: full range of motion, supple, no meningismus Respiratory: chest non-tender, wheezing - Slight expiratory wheezing Cardiovascular #1: regular rate, rhythm, no murmur Gastrointestinal: normal bowel sounds, non tender, no mass, no organomegaly, no bruit, non-distended Musculoskeletal: back normal, gait/station normal, normal range of motion Psychiatric: mood/affect normal Skin: warm/dry Medical Decision Making Diagnostic Impression: Primary Impression: Upper respiratory infection Qualified Codes: J06.9 - Acute upper respiratory infection, unspecified Additional Impression: Asthma exacerbation Qualified Codes: J45.21 - Mild intermittent asthma with (acute) exacerbation ER Course Patient with upper respiratory infection with asthma exacerbation. Better after breathing treatment. No evidence of pneumonia, ACS, PE, dissection to name a few. Last Vital Signs Date Time Temp Pulse Resp B/P (MAP) Pulse Ox O2 Delivery O2 Flow Rate FiO2 11/14/18 22:04 98.2 103 18 110/79 (89) 97 Room Air Status: improved Disposition: HOME, SELF-CARE Condition: Stable Scripts Prednisone* (PREDNISONE*) 20 Mg Tablet 40 MG ORAL DAILY, #8 TAB Prov: Bob Marquez MD 11/14/18 Albuterol Sulfate* (ALBUTEROL SULFATE MDI*) 8.5 Gm Hfa.aer.ad 2 PUFF INH Q4H PRN for cough/wheezing, #1 EA 0 Refills Prov: Bob Marquez MD 11/14/18 Patient Instructions: Upper Respiratory Infection, Adult Additional Instructions: Follow-up with in 7 days. Return if symptoms worsen. Bob Marquez MD Nov 14, 2018 22:35
[2018-11-14 23:04] VITALS: BP 115/72
--- NOTE | 2018-11-14 23:05 | NUR ---
ER DISCHARGE NOTE: Patient is cleared to be discharged per ERMD, pt is aox4, on room air, with stable vital signs. pt was given dc and prescription instructions, pt was able to verbalize understanding, pt id band removed without complications. pt is able to ambulate with steady gait. pt took all belongings.
== END 2018-11-14 23:11 | disposition home or self-care (01) ==
LOC: EMR 22:26
DX: J06.9 Acute upper respiratory infection, unspecified (principal); J45.21 Mild intermittent asthma with (acute) exacerbation
CPT/HCPCS: 94640; 94664; 99284; J7512

== ENCOUNTER 2019-05-10 13:12 | Emergency (ER) | payer OTHER ==
[~2019-05-10] VITALS: Ht 149.9 cm; Wt 70.3 kg
[2019-05-10 13:16] VITALS: BP 110/72
[2019-05-10] MEDS ORDERED: NKM (13:21)
[2019-05-10] MEDS ORDERED: Omnipaue 350mg/ml 100ml vial INJ PRN (14:15)
[2019-05-10 14:54] LABS: BASOPHILS % (AUTO) 0.7 % (0.0-2.0); HEMATOCRIT 37.9 % (37.0-47.0); HEMOGLOBIN 12.2 G/DL (12.0-16.0); LYMPHOCYTES % (AUTO) 25.2 % (20.0-45.0); MEAN CORPUSCULAR VOLUME 78 FL (80-99); NEUTROPHILS % (AUTO) 64.2 % (45.0-75.0); PLATELET COUNT 314 K/UL (150-450); RED BLOOD COUNT 4.88 M/UL (4.20-5.40); RED CELL DISTRIBUTION WIDTH 14.7 % (11.6-14.8); WHITE BLOOD COUNT 8.3 K/UL (4.8-10.8)
--- NOTE | 2019-05-10 15:01 | Emergency Room Report ---
History of Present Illness General Chief Complaint: Upper Respiratory Illness Source: Patient Present Illness HPI 34-year-old female with history of asthma presents with 3 days of cough, left arm pain, upper back pain, chest pain. Denies trauma. Reports a phlegmy cough. Denies any fever, vomiting, sore throat, shortness of breath, abdominal pain. She denies any history of DVT, recent travel or surgery, contraceptive use, leg swelling. She has been taking Mucinex with mild relief. Allergies: Coded Allergies: No Known Allergies (Unverified , 03/15/18) Patient History Past Medical History: see triage record Last Menstrual Period: 04/03/2019 Reviewed Nursing Documentation: PMH: Agreed; PSxH: Agreed Nursing Documentation-PMH Past Medical History: No History, Except For Hx Asthma: Yes Review of Systems All Other Systems: negative except mentioned in HPI Physical Exam Vital Signs Date Time Temp Pulse Resp B/P (MAP) Pulse Ox O2 Delivery O2 Flow Rate FiO2 05/10/19 13:16 97.9 91 16 110/72 (85) 98 Room Air Sp02 EP Interpretation: reviewed, normal General Appearance: no apparent distress, alert, GCS 15, non-toxic Head: normocephalic, atraumatic ENT: hearing grossly normal, normal pharynx, no angioedema, normal voice Neck: full range of motion, supple/symm/no masses Respiratory: lungs clear, normal breath sounds, no wheezing, speaking full sentences, other - Left-sided chest wall tenderness Cardiovascular #1: regular rate, rhythm, no edema Cardiovascular #2: 2+ carotid (R), 2+ carotid (L), 2+ radial (R), 2+ radial (L) , 2+ femoral (R), 2+ femoral (L), 2+ dorsalis pedis (R), 2+ dorsalis pedis (L) Gastrointestinal: normal bowel sounds, non tender, soft, non-distended, no guarding, no rebound Genitourinary: normal inspection, no CVA tenderness Musculoskeletal: back normal, normal range of motion, gait/station normal, non- tender, other - tenderness to the left upper arm, no swelling, no rash, no erythema or warmth, FROM to shoulder and elbow joints Neurologic: alert, motor strength/tone normal, 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 Mejia is my supervising physician whom patient management and care has been discussed with. Diagnostic Impression: Primary Impression: Costochondritis Additional Impressions: Cough Arm pain Qualified Codes: M79.602 - Pain in left arm ER Course Pt. presents to the ED c/o cough, chest and back pain, and left arm pain for 3 days. Ddx considered but are not limited to costochondritis, pneumonia, bronchitis, DC , PE, DVT. Vital signs: are WNL, pt. is afebrile H&PE are most consistent with costochondritis, however patient presented with atypical presentation, therefore further studies were ordered. ORDERS: CBC, CMP WNL. Troponin negative. negative. No DVT on LUE venous duplex. Chest xray normal. CT angio chest shows no signs of PE or other pathology. ED INTERVENTIONS: Given Ibuprofen for pain. DISCHARGE: At this time pt. is stable for d/c to home. Will provide printed patient care instructions, and any necessary prescriptions. Care plan and follow up instructions have been discussed with the patient prior to discharge. Laboratory Tests Test 05/10/19 13:50 05/10/19 14:45 Urine HCG, Qualitative Negative (NEGATIVE) White Blood Count 8.3 K/UL (4.8-10.8) Red Blood Count 4.88 M/UL (4.20-5.40) Hemoglobin 12.2 G/DL (12.0-16.0) Hematocrit 37.9 % (37.0-47.0) Mean Corpuscular Volume 78 FL (80-99) L Mean Corpuscular Hemoglobin 25.0 PG (27.0-31.0) L Mean Corpuscular Hemoglobin Concent 32.2 G/DL (32.0-36.0) Red Cell Distribution Width 14.7 % (11.6-14.8) Platelet Count 314 K/UL (150-450) Mean Platelet Volume 7.7 FL (6.5-10.1) Neutrophils (%) (Auto) 64.2 % (45.0-75.0) Lymphocytes (%) (Auto) 25.2 % (20.0-45.0) Monocytes (%) (Auto) 7.0 % (1.0-10.0) Eosinophils (%) (Auto) 3.0 % (0.0-3.0) Basophils (%) (Auto) 0.7 % (0.0-2.0) Sodium Level 140 MMOL/L (136-145) Potassium Level 4.5 MMOL/L (3.5-5.1) Chloride Level 107 MMOL/L (98-107) Carbon Dioxide Level 26 MMOL/L (21-32) Anion Gap 7 mmol/L (5-15) Blood Urea Nitrogen 9 mg/dL (7-18) Creatinine 0.8 MG/DL (0.55-1.30) Estimate Glomerular Filtration Rate > 60 mL/min (>60) Glucose Level 100 MG/DL (74-106) Calcium Level 9.0 MG/DL (8.5-10.1) Total Bilirubin 0.3 MG/DL (0.2-1.0) Aspartate Amino Transferase (AST) 21 U/L (15-37) Alanine Aminotransferase (ALT) 24 U/L (12-78) Alkaline Phosphatase 78 U/L (46-116) Troponin I 0.003 ng/mL (0.000-0.056) Total Protein 7.4 G/DL (6.4-8.2) Albumin 3.7 G/DL (3.4-5.0) Globulin 3.7 g/dL Albumin/Globulin Ratio 1.0 (1.0-2.7) EKG Diagnostic Results EKG Time: 13:52 EP Interpretation: Dr. Galaviz Rate: normal Rhythm: NSR ST Segments: no acute changes PA Scribe Text This EKG was scribed by Paige Ivory PA-C. Chest X-Ray Diagnostic Results Chest X-Ray Diagnostic Results : Chest X-Ray Ordered: Yes # of Views/Limited/Complete: 1 View Indication: Chest Pain EP Interpretation: Yes KELSY Xray: Interpretation reviewed, by supervising MD, and agrees with findings. Interpretation: no consolidation, no effusion, no pneumothorax, no acute cardiopulmonary disease Impression: No acute disease CT/MRI/US Diagnostic Results CT/MRI/US Diagnostic Results : Impression CT Angio Chest, interpreted by radiologist: Impression: Negative. LUE venous duplex, interpreted by US tech: Impression: Negative for DVT. Last Vital Signs Date Time Temp Pulse Resp B/P (MAP) Pulse Ox O2 Delivery O2 Flow Rate FiO2 05/10/19 13:16 97.9 16 110/72 98 Room Air 05/10/19 13:16 91 Disposition: HOME, SELF-CARE Condition: Stable Scripts D-Methorphan Hb/Prometh Hcl* (PROMETHAZINE-DM SYRUP*) 118 Ml Syrup 5 ML ORAL Q4H PRN for For Cough, #240 ML 0 Refills Prov: Paige Ivory PKoko 05/10/19 Ibuprofen* (MOTRIN*) 600 Mg Tablet 600 MG ORAL Q6H PRN for For Pain, #30 TAB Prov: Paige Ivory PKoko 05/10/19 Referrals: [facility] (PCP) Paige Ivory May 10, 2019 15:01
[2019-05-10 15:06] LABS: ANION GAP 7 mmol/L (5-15); BLOOD UREA NITROGEN 9 mg/dL (7-18); CARBON DIOXIDE 26 MMOL/L (21-32); CHLORIDE 107 MMOL/L (98-107); CREATININE 0.8 MG/DL (0.55-1.30); POTASSIUM 4.5 MMOL/L (3.5-5.1); SODIUM 140 MMOL/L (136-145)
[2019-05-10 15:11] LABS: ALANINE AMINOTRANSFERASE 24 U/L (12-78); ALBUMIN 3.7 G/DL (3.4-5.0); ALKALINE PHOSPHATASE 78 U/L (46-116); ASPARTATE AMINO TRANSFERASE 21 U/L (15-37); BILIRUBIN,TOTAL 0.3 MG/DL (0.2-1.0)
--- NOTE | 2019-05-10 17:02 | Diagnostic Imaging Report ---
ndication: Chest pain with pain radiating down left arm Technique: IV administration nonionic contrast. Spiral acquisitions obtained from the lung bases to the lung apices. Multiplanar and 3-D reconstructions were generated. Total dose length product 592 mGycm. CTDIvol(s) 44 mGy. Dose reduction achieved using automated exposure control Comparison: none Findings: There is good quality opacification of the pulmonary arteries. No intraluminal filling defects or other findings to suggest acute pulmonary embolus demonstrated. Normal caliber pulmonary arteries. There is no evidence of right ventricular dilatation. No evidence of thoracic aortic aneurysm or dissection. Normal caliber and branching anatomy of the great neck vessels. The lungs are clear. No infiltrates, effusions, congestion, masses, or nodules. There are focal areas of pleural thickening posteriorly bilaterally. The heart size is normal. No pericardial effusion. The esophagus is unremarkable. No mediastinal or hilar mass or adenopathy demonstrated. The included upper abdominal anatomy is unremarkable. Impression: Negative The CT scanner at [facility] is accredited by the [employer] and the scans are performed using protocols designed to limit radiation exposure to as low as reasonably achievable to attain images of sufficient resolution adequate for diagnostic evaluation.
[2019-05-10] MEDS ORDERED: IBUPROFEN600 MG ORAL ×2 (17:34→18:22)
[2019-05-10] MEDS ORDERED: PROMETHAZINE-D118 ML ORAL ×2 (17:34→18:22)
[2019-05-10 17:39] VITALS: BP 123/79
--- NOTE | 2019-05-10 18:01 | Diagnostic Imaging Report ---
Indication: Left arm pain Technique: Grayscale and duplex images of the left upper extremity vein Comparison: none Findings: Grayscale place images demonstrate no evidence of intraluminal thrombus. Normal phasic Doppler waveforms. Normal compressibility Impression: Negative for evidence of left upper extremity venous thrombosis
--- NOTE | 2019-05-10 18:42 | Diagnostic Imaging Report ---
Indication: Cough Technique: One view of the chest Comparison: 05/28/2018 Findings: Lungs and pleural spaces are clear. Heart size is normal. No significant change Impression: No acute process
[2019-05-11] MEDS ORDERED: VENTOLIN HFA18 GM INH (21:57)
[2019-05-11] MEDS ORDERED: PERCOCET 5-3251 EACH ORAL (22:26)
[2019-05-11] MEDS ORDERED: IBUPROFEN600 MG ORAL (22:26)
[2019-05-11] MEDS ORDERED: ACYCLOVIR400 MG ORAL (22:26)
== END 2019-05-10 17:41 | disposition home or self-care (01) ==
LOC: EMR 14:10
DX: M94.0 Chondrocostal junction syndrome [Tietze] (principal); R05 Cough; M79.602 Pain in left arm; R07.9 Chest pain, unspecified; M54.9 Dorsalgia, unspecified
CPT/HCPCS: 36415; 71045; 71275; 80053; 81025; 84484; 85025; 93005; 93931; Q9967; Z7502; 99284

== ENCOUNTER 2019-05-11 21:45 | Emergency (ER) | payer OTHER ==
[~2019-05-11] VITALS: Ht 149.9 cm; Wt 70.3 kg
[~2019-05-11 21:45] MED LIST changes: +PROMETHAZINE-D118 ML ORAL
[2019-05-11] MEDS ORDERED: VENTOLIN HFA18 GM INH (21:57)
[2019-05-11 21:58] VITALS: BP 130/76
--- NOTE | 2019-05-11 21:58 | NUR ---
ED Nurse Note: Pt walked in to ED for C/O painful blisters and rashes on her right upper back area since 2 days ago. pt also reports itchiness.
[2019-05-11] MEDS ORDERED: IBUPROFEN600 MG ORAL (22:26)
[2019-05-11] MEDS ORDERED: ACYCLOVIR400 MG ORAL (22:26)
[2019-05-11] MEDS ORDERED: PERCOCET 5-3251 EACH ORAL (22:26)
--- NOTE | 2019-05-11 22:26 | Emergency Room Report ---
History of Present Illness General Chief Complaint: Skin Rash/Abscess Source: Patient Present Illness HPI 34-year-old female who presents with severe back pain and rash. She reports she came to emergency room with back pain yesterday. Found to have rash today. Very painful to left upper back. Reported history of chickenpox when she was a child. Patient denies any trauma or injuries. patient denies any bowel changes, urinary incontinence, lower extremity pains Allergies: Coded Allergies: No Known Allergies (Unverified , 03/15/18) Patient History Reviewed Nursing Documentation: PMH: Agreed; PSxH: Agreed Nursing Documentation-PMH Hx Asthma: Yes Review of Systems Constitutional: Denies: chills, fever Respiratory: Denies: cough, shortness of breath Cardiovascular: Denies: chest pain, palpitations Gastrointestinal: Denies: diarrhea, vomiting Genitourinary: Denies: hematuria, pain Musculoskeletal: Reports: back pain; Denies: joint swelling Skin: Reports: rash; Denies: lesions Neurological: Denies: headache, dizziness Physical Exam Vital Signs Date Time Temp Pulse Resp B/P (MAP) Pulse Ox O2 Delivery O2 Flow Rate FiO2 05/11/19 21:54 98.2 89 17 125/76 (92) 98 Room Air Sp02 EP Interpretation: reviewed General Appearance: well appearing, no apparent distress, non-toxic Head: normocephalic, atraumatic Eyes: bilateral eye normal inspection ENT: hearing grossly normal, EOM grossly intact, moist mucus membranes Neck: supple Respiratory: lungs clear, normal breath sounds, no respiratory distress, speaking full sentences Cardiovascular #1: regular rate, rhythm, normal capillary refill Cardiovascular #2: 2+ radial (R), 2+ radial (L) Gastrointestinal: soft, non-distended Rectal: deferred Musculoskeletal: moves extm spontaneously, no lower extremity edema Neurologic: grossly normal Psychiatric: mood/affect normal Skin: rash - . Vesicular rash on left upper back mild surrounding erythema, tenderness to palpation, no open wounds., warm/dry, normal turgor Medical Decision Making Diagnostic Impression: Primary Impression: Shingles ER Course 34-year-old female with back pain and now new rash likely consistent with shingles. Patient will be treated with antivirals and pain medication. Recommended to stay away from females and children of young age who were not vaccinated. Patient understands precautions. Patient is stable for outpatient follow-up and discharge Last Vital Signs Date Time Temp Pulse Resp B/P (MAP) Pulse Ox O2 Delivery O2 Flow Rate FiO2 05/11/19 21:58 98.3 85 17 130/76 98 Room Air Disposition: HOME, SELF-CARE Condition: Stable Scripts Ibuprofen* (MOTRIN*) 600 Mg Tablet 600 MG ORAL Q8H PRN for For Pain, #30 TAB 0 Refills Prov: Jurgen Mejia M.D. 05/11/19 Oxycodone/Acetaminophen 5-325* (PERCOCET 5-325 MG TABLET*) 1 Each Tablet 1 TAB ORAL Q4H PRN for For Pain, #10 TAB 0 Refills Prov: Jurgen Mejia M.D. 05/11/19 Acyclovir* (ACYCLOVIR*) 400 Mg Tablet 400 MG ORAL FIVE TIMES A DAY for 10 Days, #50 TAB Prov: Jurgen Mejia M.D. 05/11/19 Patient Instructions: Loli Additional Instructions: Please follow-up with your primary care doctor in 2 to 3 days for reevaluation. Please stay away from women and young children who have not been immunized Jurgen Mejia M.D. May 11, 2019 22:26
[2019-05-11 22:34] VITALS: BP 125/79
== END 2019-05-11 22:34 | disposition home or self-care (01) ==
LOC: EMR 22:33
DX: B02.9 Zoster without complications (principal); M54.6 Pain in thoracic spine
CPT/HCPCS: 99282